=== PATIENT | female | born 1995 | race Caucasian/White ===

== ENCOUNTER 2021-02-24 17:06 | Emergency (ER) | payer OTHER ==
[~2021-02-24 17:06] MED LIST: IBUPROFEN600 MG PO; PREDNISONE20 MG PO; VALTREX1000 MG PO
[2021-02-25] MEDS ORDERED: AUGMENTIN 875-1 EACH PO (00:39)
== END 2021-02-25 00:56 | disposition home or self-care (01) ==
LOC: ER1 17:06
DX: S61.451A Open bite of right hand, initial encounter (principal); S61.236A Puncture wound without foreign body of right little finger without damage to nail, initial encounter; S50.812A Abrasion of left forearm, initial encounter; E11.9 Type 2 diabetes mellitus without complications; Z23 Encounter for immunization; Z79.4 Long term (current) use of insulin; Z88.2 Allergy status to sulfonamides; W54.0XXA Bitten by dog, initial encounter
CPT/HCPCS: 73090; 73130; 90471; 90715; 99283

== ENCOUNTER → 2021-12-18 | Outpatient (CLI) | payer OTHER ==
[~2021-12-18] MED LIST changes: +AUGMENTIN 875-1 EACH PO
== END ==
LOC: SLEEP 13:17
DX: G47.33 Obstructive sleep apnea (adult) (pediatric) (principal); G47.37 Central sleep apnea in conditions classified elsewhere; G47.31 Primary central sleep apnea
CPT/HCPCS: 95810

== ENCOUNTER 2022-04-01 14:21 | Emergency (ER) | payer OTHER ==
[2022-04-01 15:51] LABS: RED BLOOD COUNT 4.66 M/UL (4.00-5.10); WHITE BLOOD COUNT 7.7 K/UL (4.5-11.0)
[2022-04-01 16:21] LABS: BUN/CREATININE RATIO 8 (0-10)
[2022-04-01] MEDS ORDERED: CLEOCIN HCL150 MG PO (17:56)
[2022-04-01] MEDS ORDERED: DIFLUCAN150 MG PO (18:20)
== END 2022-04-01 19:07 | disposition home or self-care (01) ==
LOC: ER1 14:21
DX: K04.7 Periapical abscess without sinus (principal)
CPT/HCPCS: 64400; 70487; 80053; 82550; 82553; 83605; 84484; 85025; 93005; 96374; 99284; J1885; J2405; Q9967